=== PATIENT | female | born 1980 | race Two or more races ===

== ENCOUNTER → 2018-02-20 | Day surgery (SDC) | payer OTHER ==
[~2018-02-20] MED LIST: IV RINGERS,LACTATED 1000ML 1,000 ML IV SCH; PROPOFOL 20 ML IV ONE
[2018-02-20 08:53] LABS: U PREG PATIENT NEGATIVE (NEG)
[2018-02-20 10:30] VITALS: BP 108/69
--- NOTE | 2018-02-21 16:08 | PATHOLOGY ---
[facility] Accession Number: [id number] . 01 Material submitted: . PART A: SMALL BOWEL BIOPSY PART B: GASTRIC ANTRUM BIOPSY PART C: DISTAL ESOPHAGUS BIOPSY PART D: MID ESOPHAGUS BIOPSY . 01 Clinical history: . Abdominal pain . 02 Diagnosis: A. Small bowel biopsy: - No significant pathologic abnormalities. . B. Gastric biopsy, antrum: - Chronic gastritis, mild. . C. Esophageal biopsies, distal esophagus: - Segments of hyperplastic squamous esophageal mucosa and contiguous gastric mucosa showing chronic inflammation, consistent with reflux esophagitis. . D. Esophageal biopsies, middle esophagus: - No significant pathologic abnormalities. MBR/02/21/2018 . 02 Comment: Sections of the small bowel biopsy reveal segments of duodenal and small intestine mucosa. Where best oriented, the mucosal villi show no sprue-like changes or significant inflammatory changes. Sections of the gastric antral biopsy show congestion and mild chronic inflammation. A properly controlled immunoperoxidase stain for Helicobacter is negative for Helicobacter organisms. Sections of the distal esophageal biopsy reveal segments of hyperplastic squamous esophageal mucosa with contiguous gastric mucosa showing moderate chronic inflammation. The findings are consistent with reflux esophagitis. There is no evidence of Swann's change, dysplasia, or malignancy. Sections of the middle esophagus biopsy reveal segments of tangentially oriented squamous esophageal mucosa showing no significant pathologic abnormalities. . Special stain performed: Immunoperoxidase stain for Helicobacter on B1. . (JPM:syeda; 02/21/2018) . 02 Electronically signed: . Scott Ozuna MD, Pathologist NPI- [id number] . 01 Gross description: . A. Received in formalin labeled "Delgadomadrigal, Aspen, small bowel BX," are 4 segments of [place] soft tissue measuring 1.1 x 0.6 x 0.2 cm in aggregate dimensions and ranging from 0.2 to 0.5 cm in maximum dimension. The specimen is submitted entirely in cassette A1. . B. Received in formalin labeled "Delgadomadrigal, Aspen, BX gastric antrum," are 2 segments of [place] soft tissue measuring 0.7 x 0.3 x 0.2 cm in aggregate dimensions and ranging from 0.3 to 0.4 cm in maximum dimension. The specimen is submitted entirely in cassette B1. . C. Received in formalin labeled "Delgadomadrigal, Aspen, distal esophagus BX," are 2 segments of [place] soft tissue measuring 0.7 x 0.3 x 0.2 cm in aggregate dimensions and ranging from 0.3 to 0.4 cm in maximum dimension. The specimen is submitted entirely in cassette C1. . D. Received in formalin labeled "Delgadomadrigal, Aspen, mid esophagus BX," are 3 segments of [place] soft tissue measuring 0.5 x 0.4 x 0.1 cm in aggregate dimensions and ranging from 0.2 to 0.4 cm in maximum dimension. The specimen is submitted entirely in cassette D1. (TSD; 02/20/2018) TOB/TOB . 02 Pathologist provided ICD-10: K29.50, K21.0, R10.13 . 02 CPT . 685180, 044472, 778558, 716777, U20630 Specimen Comment: A courtesy copy of this report has been sent to Specimen Comment: [phone]. Specimen Comment: Report sent to Performed at: 01 [facility] [address], [place], [place] [id number] MD Marvin Rivera MD Phone: [phone] Performed at: 02 [facility] [address] [place], [place] [id number] MD Scott Ozuna MD Phone: [phone]
== END | disposition home or self-care (01) ==
LOC: SURG 08:15
PROVIDERS: ATTEND Internal Medicine Gastroenterology
DX: K21.0 Gastro-esophageal reflux disease with esophagitis (principal); K29.50 Unspecified chronic gastritis without bleeding; K31.89 Other diseases of stomach and duodenum; Z82.49 Family history of ischemic heart disease and other diseases of the circulatory system; Z83.3 Family history of diabetes mellitus; Z79.899 Other long term (current) drug therapy
CPT/HCPCS: 43239; 43450; 81025; 88305; 88342; J2704

== ENCOUNTER 2020-01-22 01:16 | Emergency (ER) | payer OTHER ==
[~2020-01-22] VITALS: Ht 167.6 cm; Wt 72.0 kg
[~2020-01-22 01:16] MED LIST changes: -IV RINGERS,LACTATED 1000ML 1,000 ML IV SCH; -PROPOFOL 20 ML IV ONE; +TRAM-48 PO
[2020-01-22 01:20] VITALS: BP 121/79
[2020-01-22] MEDS ORDERED: KETOROLAC 30 MG/ML VIAL. IVP ONE (01:45)
[2020-01-22] MEDS ORDERED: ONDANSETRON PF 4 MG/2 ML VIAL. IVP ONE (01:45)
[2020-01-22] MEDS ORDERED: FAMOTIDINE 20 MG TABLET. PO ONE (02:00)
[2020-01-22] MEDS ORDERED: LIDO:MAALOX 1:1 20 ML SINGLE DOSE. SWSW ONE (02:00)
[2020-01-22] MEDS ORDERED: OMEP20TA63 PO (02:01)
--- NOTE | 2020-01-22 02:02 | PHYS DOC ---
Past Medical History Past Medical History: GERD Past Surgical History: No Surgical History, Other Additional Past Surgical Histo: EGD Smoking Status: Never Smoker Alcohol Use: None Drug Use: None General Adult EDM: Chief Complaint: ABDOMINAL PAIN HPI: HPI: Patient is a 39 year old female presents with a chief complaint of epigastric/ruq discomfort. Patient states she has a long standing history of similar pain. Patient states pain comes and goes. Patient states she had a EGD and was diagnosed with GERD. Patient was placed on prescription medications but recently ran out. Return of pain this AM. Patient admits to drinking tonight. She has nausea but no vomiting or diarrhea. On exam patients abdomen soft without rebound or guarding. Review of Systems: Review of Systems: Constitutional: Denies fever or chills. [] Eyes: Denies change in visual acuity. [] HENT: Denies nasal congestion or sore throat. [] Respiratory: Denies cough or shortness of breath. [] Cardiovascular: Denies chest pain or edema. [] GI: Denies , vomiting, bloody stools or diarrhea. [positive abdominal pain, nausea] : Denies dysuria. [] Musculoskeletal: Denies back pain or joint pain. [] Integument: Denies rash. [] Neurologic: Denies headache, focal weakness or sensory changes. [] Endocrine: Denies polyuria or polydipsia. [] Lymphatic: Denies swollen glands. [] Psychiatric: Denies depression or anxiety. [] Heart Score: Risk Factors: Risk Factors: DM, Current or recent (<one month) smoker, HTN, HLP, family history of CAD, obesity. Risk Scores: Score 0 - 3: 2.5% MACE over next 6 weeks - Discharge Home Score 4 - 6: 20.3% MACE over next 6 weeks - Admit for Clinical Observation Score 7 - 10: 72.7% MACE over next 6 weeks - Early Invasive Strategies Current Medications: Current Medications Medications (Trade) Dose Ordered Sig/Horacio Start Time Stop Time Status Last Admin Dose Admin Ketorolac Tromethamine (Toradol 30mg Vial) 30 mg 1X ONCE 01/22/20 01:45 01/22/20 01:46 UNV Ondansetron HCl (Zofran) 4 mg 1X ONCE 01/22/20 01:45 01/22/20 01:46 UNV Allergies: Allergies: Allergies Coded Allergies Type Severity Reaction Last Updated Verified No Known Drug Allergies 02/20/18 No Physical Exam: PE: Constitutional: Well developed, well nourished, no acute distress, non-toxic appearance. [] HENT: Normocephalic, atraumatic, bilateral external ears normal, oropharynx moist, no oral exudates, nose normal. [] Eyes: PERRLA, EOMI, conjunctiva normal, no discharge. [] Neck: Normal range of motion, no tenderness, supple, no stridor. [] Cardiovascular:Heart rate regular rhythm, no murmur [] Lungs & Thorax: Bilateral breath sounds clear to auscultation [] Abdomen: Bowel sounds normal, soft, no tenderness, no masses, no pulsatile masses. [] Skin: Warm, dry, no erythema, no rash. [] Back: No tenderness, no CVA tenderness. [] Extremities: No tenderness, no cyanosis, no clubbing, ROM intact, no edema. [] Neurologic: Alert and oriented X 3, normal motor function, normal sensory function, no focal deficits noted. [] Psychologic: Affect normal, judgement normal, mood normal. [] Current Patient Data: Labs: Laboratory Tests Test 01/22/20 01:33 POC Urine HCG, Qualitative Hcg negative (Negative) Vital Signs: Vital Signs Date Time Temp Pulse Resp B/P (MAP) Pulse Ox O2 Delivery O2 Flow Rate FiO2 01/22/20 01:20 97.8 94 22 121/79 (93) 98 Room Air 97.8 EKG: EKG: [] Radiology/Procedures: Radiology/Procedures: [] Course & Med Decision Making: Course & Med Decision Making Pertinent Labs and Imaging studies reviewed. (See chart for details) [] Patient was evaluated for chief complaint. Work-up consisted of laboratory analysis. Patient pain is chronic in nature states normally takes acid reflux medication has been out of her prescription. Patient was treated with GI cocktail and Pepcid. Patient's pain improved post treatment. Patient also found to have a urinary tract infection she was discharged home with Macrobid and omeprazole. Dragon Disclaimer: Dragon Disclaimer: This electronic medical record was generated, in whole or in part, using a voice recognition dictation system. Departure Departure Impression: Primary Impression: GERD (gastroesophageal reflux disease) Additional Impression: Urinary tract infection Disposition: 01 DC HOME SELF CARE/HOMELESS Condition: STABLE Referrals: MARCOS GRIMM MD (PCP) Patient Instructions: Gastroesophageal Reflux Disease, Adult, Urinary Tract Infection Scripts Nitrofurantoin Monohyd/M-Cryst (MACROBID 100 MG CAPSULE) 100 Mg Capsule 1 CAP PO BID for 5 Days, #10 CAP 0 Refills Prov: HEYDI MCKEON DO 01/22/20 Omeprazole Magnesium (PRILOSEC OTC) 20 Mg Tablet.dr 20 MG PO DAILY for 30 Days, #30 TAB Prov: HEYDI MCKEON DO 01/22/20 HEYDI MCKEON DO Jan 22, 2020 02:01
[2020-01-22 02:07] LABS: BILIRUBIN,URINE NEGATIVE (NEG); CLARITY,URINE CLEAR; COLOR,URINE YELLOW; NITRITE,URINE NEGATIVE (NEG); PROTEIN,URINE NEGATIVE (NEG-TRACE); UROBILINOGEN,URINE 0.2 mg/dL (0.2 mg/dL)
[2020-01-22 02:08] LABS: BASO % 1 % (0-3); EOS # 0.1 x10^3/uL (0.0-0.7); EOS % 1 % (0-3); HEMOGLOBIN 12.6 g/dL (12.0-15.5); LYMPH % 48 % (24-48); MEAN CORPUSCULAR HEMOGLOBIN 30 pg (25-35); MEAN CORPUSCULAR HGB CONC 35 g/dL (31-37); MEAN CORPUSCULAR VOLUME 86 fL (79-100); MONO # 0.4 x10^3/uL (0.0-1.1); MONO % 6 % (0-9); NEUT # 2.8 x10^3/uL (1.8-7.7); NEUT % 44 % (31-73); PLATELET COUNT 204 x10^3/uL (140-400); RED BLOOD COUNT 4.18 x10^6/uL (3.50-5.40); WHITE BLOOD COUNT 6.3 x10^3/uL (4.0-11.0)
[2020-01-22 02:14] LABS: CALCIUM 9.2 mg/dL (8.5-10.1); CREATININE 0.9 mg/dL (0.6-1.0); GFR 70.1; POTASSIUM 3.5 mmol/L (3.5-5.1)
[2020-01-22 02:20] LABS: ALBUMIN 3.6 g/dL (3.4-5.0); ALBUMIN/GLOBULIN RATIO 1.1 (1.0-1.7); TOTAL BILIRUBIN 0.2 mg/dL (0.2-1.0); TOTAL PROTEIN 6.8 g/dL (6.4-8.2)
[2020-01-22 02:20] LABS: BACTERIA,URINE MANY /HPF (0-FEW); RBC,URINE OCC /HPF (0-2)
[2020-01-22] MEDS ORDERED: NITR100C62 PO (02:24)
== END 2020-01-22 02:32 | disposition home or self-care (01) ==
LOC: ER 01:16
DX: K21.9 Gastro-esophageal reflux disease without esophagitis (principal); N39.0 Urinary tract infection, site not specified
CPT/HCPCS: 36415; 80053; 81001; 81025; 83690; 85025; 99283

== ENCOUNTER 2020-02-06 15:57 | Emergency (ER) | payer OTHER ==
[~2020-02-06] VITALS: Ht 160 cm; Wt 70.9 kg
[~2020-02-06 15:57] MED LIST changes: +NITR100C62 PO; +OMEP20TA63 PO
[2020-02-06] MEDS ORDERED: ONDANSETRON PF 4 MG/2 ML VIAL. IVP ONE (16:45)
[2020-02-06] MEDS ORDERED: MORPHINE SULFATE 10 MG/ML VIAL. IV ONE (16:45)
[2020-02-06] MEDS ORDERED: IV NORMAL SALINE 1000ML BAG 1,000 ML IV ONE (16:45)
[2020-02-06 17:43] LABS: BASO % 0 % (0-3); EOS # 0.1 x10^3/uL (0.0-0.7); EOS % 1 % (0-3); HEMATOCRIT 36.8 % (36.0-47.0); HEMOGLOBIN 12.5 g/dL (12.0-15.5); LYMPH % 34 % (24-48); MEAN CORPUSCULAR HEMOGLOBIN 30 pg (25-35); MEAN CORPUSCULAR HGB CONC 34 g/dL (31-37); MEAN CORPUSCULAR VOLUME 87 fL (79-100); MONO # 0.3 x10^3/uL (0.0-1.1); MONO % 5 % (0-9); NEUT # 3.6 x10^3/uL (1.8-7.7); NEUT % 60 % (31-73); PLATELET COUNT 224 x10^3/uL (140-400); RED BLOOD COUNT 4.22 x10^6/uL (3.50-5.40); RED CELL DISTRIBUTION WIDTH 13.1 % (11.5-14.5); WHITE BLOOD COUNT 6.1 x10^3/uL (4.0-11.0)
[2020-02-06 17:49] LABS: CALCIUM 8.7 mg/dL (8.5-10.1); CREATININE 0.6 mg/dL (0.6-1.0); GFR 111.9; POTASSIUM 3.6 mmol/L (3.5-5.1)
[2020-02-06 17:54] LABS: ALBUMIN 3.7 g/dL (3.4-5.0); ALBUMIN/GLOBULIN RATIO 1.1 (1.0-1.7); TOTAL BILIRUBIN 0.3 mg/dL (0.2-1.0)
[2020-02-06] MEDS ORDERED: IOHEXOL 300 MG/ML 100ML VIAL. IV ONE (19:00)
[2020-02-06 19:17] LABS: BILIRUBIN,URINE NEGATIVE (NEG); CLARITY,URINE CLEAR; COLOR,URINE YELLOW; NITRITE,URINE NEGATIVE (NEG); PH,URINE 6.5 (<5.0-8.0); PROTEIN,URINE NEGATIVE (NEG-TRACE); UROBILINOGEN,URINE 0.2 mg/dL (0.2 mg/dL)
[2020-02-06 19:20] LABS: BARBITURATES NEG (NEG); BENZODIAZEPINES NEG (NEG); CANNABINOIDS NEG (NEG); COCAINE NEG (NEG); METHADONE NEG (NEG); OPIATES POS (NEG); PHENCYCLIDINE NEG (NEG)
[2020-02-06 19:23] LABS: AMPHETAMINE/METHAMPHETAMINE NEG (NEG)
[2020-02-06 19:28] LABS: BACTERIA,URINE FEW /HPF (0-FEW); RBC,URINE 0 /HPF (0-2)
--- NOTE | 2020-02-06 19:29 | RAD ---
Exam: CT of abdomen and pelvis with contrast INDICATION: Right abdominal TECHNIQUE: Sequential axial images through the abdomen and pelvis obtained following the administrati on of 75 mL of Isovue-370 IV contrast. Sagittal and coronal reformatted images were reconstructed fro m the axial data and reviewed. Comparisons: None FINDINGS: Heart size is normal. No pericardial visualized lung bases are clear. No pleural effusion. Liver, spleen, pancreas, gallbladder and adrenals are unremarkable. No perinephric inflammation or hydronephrosis. No renal or ureteral calculi are identified. Bladder is decompressed not well evaluated. Uterus is not enlarged. No abnormal adnexal mass. Mild fat stranding surrounding small bowel loops in the left lower quadrant series 2 image 56. No suspicious osseous lesions or acute fractures. Large and small bowel are unremarkable. Appendix is not identified. No free intra-abdominal air or fluid. No obstruction. Abdominal aorta has a normal course and caliber. Abdominal vasculature is patent. No enlarged intra-abdominal lymph nodes are identified. IMPRESSION: Fat stranding surrounding small bowel loops in the left lower quadrant favored represent enteritis ma y be infectious or inflammatory in etiology. Exposure: One or more of the following in the visualized dose reduction techniques were utilized for this examination: 1. Automated exposure control 2. Adjustment of the MA and/or KV according to patient size 3. Use of iterative of reconstructive technique Electronically signed by: Jennifer Schmitt MD (02/06/2020 7:27 PM) [facility]
[2020-02-06] MEDS ORDERED: DICY20TA3 PO (20:08)
--- NOTE | 2020-02-06 20:08 | PHYS DOC ---
Past Medical History Past Medical History: GERD Past Surgical History: No Surgical History, Other Additional Past Surgical Histo: EGD Smoking Status: Never Smoker Alcohol Use: None Drug Use: None General Adult EDM: Chief Complaint: ABDOMINAL PAIN HPI: HPI: Patient is a 39 year old female with history of acid reflux presenting to the ED today complaining of 7 out of 10 right-sided abdominal pain radiating to her groin area that began 2 days ago. Patient denies any nausea, vomiting, diarrhea. Describes the pain as sharp and intermittent. Denies anything specifically exacerbating or relieving her symptoms. She states she was seen by the PCP and diagnosed with UTI and started on Cipro a couple days ago. Denies any fever, urgency, frequency, dysuria. Review of Systems: Review of Systems: Constitutional: Denies fever or chills. [] Eyes: Denies change in visual acuity. [] HENT: Denies nasal congestion or sore throat. [] Respiratory: Denies cough or shortness of breath. [] Cardiovascular: Denies chest pain or edema. [] GI: Reports right-sided abdominal pain, denies nausea, vomiting, bloody stools or diarrhea. [] : Denies dysuria. [] Musculoskeletal: Denies back pain or joint pain. [] Integument: Denies rash. [] Neurologic: Denies headache, focal weakness or sensory changes. [] Psychiatric: Denies depression or anxiety. [] Heart Score: Risk Factors: Risk Factors: DM, Current or recent (<one month) smoker, HTN, HLP, family history of CAD, obesity. Risk Scores: Score 0 - 3: 2.5% MACE over next 6 weeks - Discharge Home Score 4 - 6: 20.3% MACE over next 6 weeks - Admit for Clinical Observation Score 7 - 10: 72.7% MACE over next 6 weeks - Early Invasive Strategies Current Medications: Current Medications Medications (Trade) Dose Ordered Sig/Horacio Start Time Stop Time Status Last Admin Dose Admin Iohexol (Omnipaque 300 Mg/ml) 75 ml 1X ONCE 02/06/20 19:00 02/06/20 19:01 DC 02/06/20 19:15 75 ML Morphine Sulfate (Morphine Sulfate) 5 mg 1X ONCE 02/06/20 16:45 02/06/20 16:46 DC 02/06/20 17:05 5 MG Ondansetron HCl (Zofran) 4 mg 1X ONCE 02/06/20 16:45 02/06/20 16:46 DC 02/06/20 17:04 4 MG Sodium Chloride 1,000 ml @ 1,000 mls/hr 1X ONCE 02/06/20 16:45 02/06/20 17:44 DC 02/06/20 17:04 1,000 MLS/HR Allergies: Allergies: Allergies Coded Allergies Type Severity Reaction Last Updated Verified No Known Drug Allergies 02/20/18 No Physical Exam: PE: Constitutional: Well developed, well nourished, no acute distress, non-toxic appearance. [] HENT: Normocephalic, atraumatic, bilateral external ears normal, oropharynx moist, no oral exudates, nose normal. [] Eyes: PERRLA, EOMI, conjunctiva normal, no discharge. [] Neck: Normal range of motion, no tenderness, supple, no stridor. [] Cardiovascular:Heart rate regular rhythm, no murmur [] Lungs & Thorax: Bilateral breath sounds clear to auscultation [] Abdomen: Bowel sounds normal, soft, diffuse tenderness to the right mid to lower abdomen with negative psoas sign, negative obturator sign, negative Rovsing sign, no right upper quadrant tenderness, negative Gutierrez sign, no masses, no pulsatile masses. [] Skin: Warm, dry, no erythema, no rash. [] Back: No tenderness, no CVA tenderness. [] Extremities: No tenderness, no cyanosis, no clubbing, ROM intact, no edema. [] Neurologic: Alert and oriented X 3, normal motor function, normal sensory function, no focal deficits noted. [] Psychologic: Affect normal, judgement normal, mood normal. [] Current Patient Data: Labs: Laboratory Tests Test 02/06/20 17:10 02/06/20 18:34 02/06/20 18:39 02/06/20 18:52 White Blood Count 6.1 x10^3/uL (4.0-11.0) Red Blood Count 4.22 x10^6/uL (3.50-5.40) Hemoglobin 12.5 g/dL (12.0-15.5) Hematocrit 36.8 % (36.0-47.0) Mean Corpuscular Volume 87 fL (79-100) Mean Corpuscular Hemoglobin 30 pg (25-35) Mean Corpuscular Hemoglobin Concent 34 g/dL (31-37) Red Cell Distribution Width 13.1 % (11.5-14.5) Platelet Count 224 x10^3/uL (140-400) Neutrophils (%) (Auto) 60 % (31-73) Lymphocytes (%) (Auto) 34 % (24-48) Monocytes (%) (Auto) 5 % (0-9) Eosinophils (%) (Auto) 1 % (0-3) Basophils (%) (Auto) 0 % (0-3) Neutrophils # (Auto) 3.6 x10^3/uL (1.8-7.7) Lymphocytes # (Auto) 2.0 x10^3/uL (1.0-4.8) Monocytes # (Auto) 0.3 x10^3/uL (0.0-1.1) Eosinophils # (Auto) 0.1 x10^3/uL (0.0-0.7) Basophils # (Auto) 0.0 x10^3/uL (0.0-0.2) Sodium Level 139 mmol/L (136-145) Potassium Level 3.6 mmol/L (3.5-5.1) Chloride Level 106 mmol/L (98-107) Carbon Dioxide Level 27 mmol/L (21-32) Anion Gap 6 (6-14) Blood Urea Nitrogen 13 mg/dL (7-20) Creatinine 0.6 mg/dL (0.6-1.0) Estimated GFR (Cockcroft-Gault) 111.9 BUN/Creatinine Ratio 22 (6-20) H Glucose Level 82 mg/dL (70-99) Calcium Level 8.7 mg/dL (8.5-10.1) Magnesium Level 2.0 mg/dL (1.8-2.4) Total Bilirubin 0.3 mg/dL (0.2-1.0) Aspartate Amino Transferase (AST) 12 U/L (15-37) L Alanine Aminotransferase (ALT) 16 U/L (14-59) Alkaline Phosphatase 66 U/L (46-116) Total Protein 7.0 g/dL (6.4-8.2) Albumin 3.7 g/dL (3.4-5.0) Albumin/Globulin Ratio 1.1 (1.0-1.7) Lipase 51 U/L (73-393) L Ethyl Alcohol Level < 10 mg/dL (0-10) Urine Opiates Screen Pos (NEG) Urine Methadone Screen Neg (NEG) Urine Barbiturates Neg (NEG) Urine Phencyclidine Screen Neg (NEG) Urine Amphetamine/Methamphetamine Neg (NEG) Urine Benzodiazepines Screen Neg (NEG) Urine Cocaine Screen Neg (NEG) Urine Cannabinoids Screen Neg (NEG) Urine Ethyl Alcohol Neg (NEG) POC Urine HCG, Qualitative Hcg negative (Negative) Urine Collection Type Unknown Urine Color Yellow Urine Clarity Clear Urine pH 6.5 (<5.0-8.0) Urine Specific [place] 1.015 (1.000-1.030) Urine Protein Negative mg/dL (NEG-TRACE) Urine Glucose (UA) Negative mg/dL (NEG) Urine Ketones (Stick) Negative mg/dL (NEG) Urine Blood Negative (NEG) Urine Nitrite Negative (NEG) Urine Bilirubin Negative (NEG) Urine Urobilinogen Dipstick 0.2 mg/dL (0.2 mg/dL) Urine Leukocyte Esterase Trace (NEG) Urine RBC 0 /HPF (0-2) Urine WBC 1-4 /HPF (0-4) Urine Squamous Epithelial Cells Few /LPF Urine Bacteria Few /HPF (0-FEW) Laboratory Tests 02/06/20 17:10 Laboratory Tests 02/06/20 17:10 Vital Signs: Vital Signs Date Time Temp Pulse Resp B/P (MAP) Pulse Ox O2 Delivery O2 Flow Rate FiO2 02/06/20 19:05 97.6 74 17 100/54 (69) 100 Room Air 97.6 EKG: EKG: [] Radiology/Procedures: Radiology/Procedures: PROCEDURE: CT ABD PELV W/ IV CONTRST ONLY Exam: CT of abdomen and pelvis with contrast INDICATION: Right abdominal TECHNIQUE: Sequential axial images through the abdomen and pelvis obtained following the administration of 75 mL of Isovue-370 IV contrast. Sagittal and coronal reformatted images were reconstructed from the axial data and reviewed. Comparisons: None FINDINGS: Heart size is normal. No pericardial visualized lung bases are clear. No pleural effusion. Liver, spleen, pancreas, gallbladder and adrenals are unremarkable. No perinephric inflammation or hydronephrosis. No renal or ureteral calculi are identified. Bladder is decompressed not well evaluated. Uterus is not enlarged. No abnormal adnexal mass. Mild fat stranding surrounding small bowel loops in the left lower quadrant series 2 image 56. No suspicious osseous lesions or acute fractures. Large and small bowel are unremarkable. Appendix is not identified. No free intra-abdominal air or fluid. No obstruction. Abdominal aorta has a normal course and caliber. Abdominal vasculature is patent. No enlarged intra-abdominal lymph nodes are identified. IMPRESSION: Fat stranding surrounding small bowel loops in the left lower quadrant favored represent enteritis may be infectious or inflammatory in etiology. Exposure: One or more of the following in the visualized dose reduction techniques were utilized for this examination: 1. Automated exposure control 2. Adjustment of the MA and/or KV according to patient size 3. Use of iterative of reconstructive technique Electronically signed by: Jennifer Zhang MD (02/06/2020 7:27 PM) [facility] DICTATED and SIGNED BY: JENNIFER ZHANG MD DATE: 02/06/20 [id number] 0 Course & Med Decision Making: Course & Med Decision Making Pertinent Labs and Imaging studies reviewed. (See chart for details) This is a 39-year-old female patient presenting to the ED today with right-sided abdominal pain radiating to her groin region. She is currently on Cipro, diagnosed with UTI couple days ago. Negative urine hCG, CBC, CMP with no acute findings. CT of the abdomen and pelvic was noted for enteritis. Patient is in no distress. Will discharge to home. Follow-up with PCP in 1 to 2 weeks. Dragon Disclaimer: Dragon Disclaimer: This electronic medical record was generated, in whole or in part, using a voice recognition dictation system. Departure Departure Impression: Primary Impression: Enteritis Disposition: 01 DC HOME SELF CARE/HOMELESS Condition: STABLE Referrals: MARCOS GRIMM MD (PCP) follow up next week Patient Instructions: Viral Gastroenteritis, [id number] Additional Instructions: You werer evaluated in the emergency room for abdominal pain, you were noted to have enteritis. Continue taking your Cipro, it will help with this condition. Take the prescribed medicine from the ED as ordered. Follow-up with your own doctor in the course of next week. Scripts Dicyclomine Hcl (DICYCLOMINE HCL) 20 Mg Tablet 1 TAB PO TID, #30 TAB 1 Refill Prov: AILYN JANSEN APRN 02/06/20 AILYN JANSEN APRN Feb 06, 2020 20:08
[2020-02-06 20:22] VITALS: BP 98/58
== END 2020-02-06 20:42 | disposition home or self-care (01) ==
LOC: ER 15:57
DX: K52.9 Noninfective gastroenteritis and colitis, unspecified (principal); R10.31 Right lower quadrant pain; K21.9 Gastro-esophageal reflux disease without esophagitis; Z98.890 Other specified postprocedural states
CPT/HCPCS: 36415; 74177; 80053; 80307; 81001; 81025; 83690; 83735; 85025; 87086; 96361; 96374; 96375; 99285; G0480; J2270; J2405; J7030; Q9967

== ENCOUNTER → 2020-04-29 | Outpatient (CLI) | payer OTHER ==
[~2020-04-29] MED LIST changes: +DICY20TA3 PO; +OXYC-325 PO
== END ==
LOC: LAB 11:01
PROVIDERS: ATTEND Surgery
DX: Z01.812 Encounter for preprocedural laboratory examination (principal); K82.4 Cholesterolosis of gallbladder; Z20.822 Contact with and (suspected) exposure to COVID-19
CPT/HCPCS: U0003

== ENCOUNTER 2020-05-02 07:41 | Day surgery (SDC) | payer OTHER ==
[~2020-05-02] VITALS: Ht 157.5 cm; Wt 71.0 kg
[~2020-05-02 07:41] MED LIST changes: -OXYC-325 PO
[2020-05-02] MEDS ORDERED: SEVOFLURANE 61 TO 120 MINUTES. IH ONE (08:32)
[2020-05-02] MEDS ORDERED: ROCURONIUM 50 MG/5 ML VIAL. ONE (08:32)
[2020-05-02] MEDS ORDERED: fentaNYL PF VIAL 100 MCG/2 ML VIAL ONE (08:32)
[2020-05-02] MEDS ORDERED: LIDOCAINE 2% PF 5 ML VIAL. ONE (08:33)
[2020-05-02] MEDS ORDERED: ONDANSETRON PF 4 MG/2 ML VIAL. ONE (08:33)
[2020-05-02] MEDS ORDERED: SURGICEL HEMOSTAT 4X8 EACH. ONE (08:33)
[2020-05-02] MEDS ORDERED: PROPOFOL 10 MG/ML (20ML) VIAL. IV ONE (08:33)
[2020-05-02] MEDS ORDERED: IOHEXOL 300 MG/ML 50 ML VIAL. ONE (08:33)
[2020-05-02] MEDS ORDERED: KETOROLAC 30 MG/ML VIAL. ONE (08:33)
[2020-05-02] MEDS ORDERED: DEXAMETHASONE SOD PHOS 4 MG/ML VIAL ONE (08:33)
[2020-05-02] MEDS ORDERED: BUPIVACAINE MPF 0.5% 30 ML VIAL. ONE (08:34)
[2020-05-02] MEDS ORDERED: fentaNYL PF VIAL 100 MCG/2 ML VIAL IVP PRN (08:45)
[2020-05-02] MEDS ORDERED: PROCHLORPERAZINE 10 MG/2 ML VIAL. IVP PRN (08:45)
[2020-05-02] MEDS ORDERED: IV RINGERS,LACTATED 1000ML 1,000 ML IV SCH ×2 (08:45)
[2020-05-02] MEDS ORDERED: HYDROmorphone 2 MG/ML VIAL IVP PRN (08:45)
[2020-05-02] MEDS ORDERED: MORPHINE SULFATE 2 MG/ML VIAL. IVP PRN (08:45)
[2020-05-02] MEDS ORDERED: NEOSTIGMINE METHYLSULFATE 5 MG/5 ML SYRINGE. ONE (09:52)
[2020-05-02] MEDS ORDERED: GLYCOPYRROLATE 1 MG/5 ML VIAL. ONE (09:52)
--- NOTE | 2020-05-02 10:33 | PDOC4 ---
Operative Note Operative Note Operative Note: Preoperative Diagnosis: Gallbladder polyp Postoperative Diagnosis: Same Procedure: Laparoscopic cholecystectomy Surgeons: Everette Photo Technologist: Waldo BEAR Anesthesia: Gen. Estimated Blood Loss: 20 mL Specimen: Gallbladder to pathology Drains: None Complications: None Indications: The patient is a 39 female who is been experiencing recurrent upper abdominal pain consistent with biliary colic. Her evaluation identified a gallbladder polyp. Surgical treatment was offered by means of a laparoscopic cholecystectomy. The risks of surgery were discussed which include bleeding, infection, bile duct injury, bile leak, pain, the potential for additional surgeries or procedures. The patient understands and would like to proceed. Description: The patient was taken to the operating room and laid supine on the operating table. General anesthesia was performed. The abdomen was prepped with ChloraPrep and draped in a standard surgical fashion. A small infraumbilical incision was made with a scalpel. The Veress needle was then inserted and a pneumoperitoneum was then created. A 5 mm trocar was then inserted and the laparoscope was introduced. In the upper midabdomen a 5 mm trocar was inserted and in the right upper quadrant one 5 mm trocar and one 2.3 mm mini lap graspers were inserted. The gallbladder was retracted cephalad. The cystic duct was dissected free from surrounding tissues. The anatomy was seen clearly and the common duct was readily visualized. The cystic duct was doubly clipped and divided. The cystic artery was then identified, dissected free, doubly clipped and divided as well. The gallbladder was then mobilized away from the liver with cautery. The umbilical 5 millimeter trocar was exchanged for an 11 millimeter trocar. The gallbladder was then placed in an endoscopic bag and extracted at the umbilical trocar site. The fascia there was closed with an 0 Vicryl suture and infiltrated with 0.5% Marcaine. All blood and irrigation fluid was suctioned and hemostasis was good. The remaining ports were removed and the pneumoperitoneum was relieved. The skin incisions were closed using 4-0 Monocryl suture. Steri-Strips and dressings were then applied. The patient tolerated the procedure well and was sent to the recovery room in stable condition. At the end of the case all counts were correct. DOMENICA NEVAREZ MD May 02, 2020 10:33
--- NOTE | 2020-05-02 10:35 | DISCH ---
DISCHARGE INSTRUCTIONS Condition on Discharge Condition on Discharge: Stable Activity After Discharge Activity Instructions for Disc: Other, see below (no lifting over 20 lbs X 2 weeks, no driving if taking pain meds) Diet after Discharge Diet after Discharge: Regular Wound Incision Care Wound/Incision Care: Other, see below (may remove bandaids tomorrow and shower) Follow-Up Follow up with: Dr Nevarez in 2 weeks in office, call for appt [phone] DOMENICA NEVAREZ MD May 02, 2020 10:35
[2020-05-02] MEDS: fentaNYL PF VIAL 100 MCG/2 ML VIAL IVP PRN ×2 (10:40→11:02)
[2020-05-02] MEDS ORDERED: OXYC-325 PO (10:54)
[2020-05-02] MEDS ORDERED: oxyCODONE/APAP 5/325 1 TAB TABLET PO ONE ×2 (11:15)
[2020-05-02 12:17] VITALS: BP 102/54
--- NOTE | 2020-05-04 17:08 | PATHOLOGY ---
[facility] Accession Number: [id number] . 01 Material submitted: . gallbladder - GALLBLADDER AND CONTENTS . 01 Clinical history: . CHOLECYSTECTOMY . 02 Diagnosis: Gallbladder, cholecystectomy: - Chronic cholecystitis, mild. - Gallbladder neck lymph node showing no significant pathologic abnormalities. (JPM:jamal; 05/04/2020) S 05/04/2020 1532 Local . 02 Comment: There are no calculi identified within the gallbladder lumen or specimen container. There is no polyp identified. There is no evidence of malignancy. (JPM:jamal; 05/04/2020) . 02 Electronically signed: . Scott Ozuna MD, Pathologist NPI- [id number] . 01 Gross description: . Fixative: Formalin Labeled: Gallbladder and contents Specimen received: Intact gallbladder Dimensions: 7.8 x 3.7 x 3.4 cm Serosa: Bile-stained Lymph node: Present measuring 0.9 cm Mucosa: Velvety, bile-stained Average wall thickness: 0.1 Calculi: Not identified Abnormalities: None identified upon extensive examination . Otr Owner Operator Truck Driver body, fundus, cystic duct margin, and lymph node in A1. (CAA; 05/03/2020) QAC/QAC 05/03/2020 1542 Local . 02 Pathologist provided ICD-10: K81.1 . 02 CPT . 343008 Specimen Comment: A courtesy copy of this report has been sent to [phone] Specimen Comment: Report sent to , / Performed at: [address], [place], [place] [id number] MD Toby Seay MD Phone: [phone] Performed at: 02 [facility] [address] [place], [place] [id number] MD Scott Ozuna MD Phone: [phone]
== END 2020-05-02 12:45 | disposition home or self-care (01) ==
LOC: SURG 07:41
PROVIDERS: ATTEND Surgery
DX: K82.4 Cholesterolosis of gallbladder (principal); K21.9 Gastro-esophageal reflux disease without esophagitis; M19.90 Unspecified osteoarthritis, unspecified site; Z98.51 Tubal ligation status; Z98.890 Other specified postprocedural states; Z79.899 Other long term (current) drug therapy; Z72.89 Other problems related to lifestyle
CPT/HCPCS: 47562; 81025; A4213; A4314; A4364; A4930; A6219; C1887; J0690; J1100; J1885; J2405; J2704; J2710; J3010; J3490; Q9967; A4452; A4657